=== PATIENT | female | born 1960 | race Caucasian/White ===

== ENCOUNTER → 2016-10-10 | Outpatient (CLI) | payer BC ==
[~2016-10-10] MED LIST: HYDR-5688 PO; RTNACR2515 TOP
--- NOTE | 2016-10-10 13:35 | MAMMOGRAPHY REPORT ---
ULTRASOUND OF RIGHT BREAST: 10/10/2016 CLINICAL HISTORY: 56-year-old woman with a family history of breast cancer = mother and great grandm other, called back from screening mammogram for a possible 17 mm mass in the upper outer quadrant of the right breast. COMPARISON: Prior screen film mammogram performed 04/28/2004. FINDINGS: Real-time high-resolution ultrasound was performed in the upper outer quadrant of the rig ht breast. In the 10:00 axis, 4 cm from the nipple, there is a parallel hypoechoic solid mass with gently lobulated margins. It measures 14.5 x 9.8 x 6.7 mm. This correlates well with the mammograp hic mass. Comparison was made to a prior screen film mammogram from 2003 but the mass is not defini tively seen on that exam, although resolution is poor given the screen film technique digitized and scanned into the system. Nevertheless, given the solid nature definitive characterization with tiss ue sampling is recommended. IMPRESSION: ACR BI-RADS CATEGORY 4: SUSPICIOUS - FOLLOW-UP RECOMMENDED 1. Ultrasound guided core needle biopsy is recommended for a solid 14.5 mm mass in the 10:00 right breast, which correlates with a newly visualized mammographic mass. This could possibly represent a fibroadenoma. These results and recommendations were discussed with the patient at the time of the exam. She tent atively scheduled the biopsy prior to leaving our department. Libby Moralez M.D. ay/:10/10/2016 13:25:27 Printing Screen Assembler: Irina HALEY)(Iván), [facility] letter sent: Abnormal 4/5 BI-RADS Code: ACR BI-RADS Category 4: Suspicious
== END | disposition home or self-care (01) ==
LOC: C.MAMM 13:00
PROVIDERS: ATTEND Family Medicine
DX: N63 Unspecified lump in breast (principal)

== ENCOUNTER → 2016-10-29 | Outpatient (CLI) | payer BC ==
--- NOTE | 2016-10-29 11:26 | Discharge Instructions ---
Discharge Instructions Procedure Procedure Date: Oct 29, 2016. Reason for visit: Right Solid Mass. Discharge Discharge Date: Oct 29, 2016. Discharge Diagnosis: post right breast ultrasound guided core biopsy Instructions Activity Recommendations: Additional Limitations (see below) Return to School/Work: no limitations Recommended Home Diet: No Limitations Provider Instructions: ACTIVITY RECOMMENDATIONS: * No lifting, pushing, pulling or exercising the affected side for three days. RETURN TO SCHOOL/WORK: * You may return to work/school after the procedure, but do not perform any strenuous activities for 24 to 48 hours. MEDICATIONS: * Tylenol (two 325 mg) every four to six hours if needed for mild pain (if not allergic to Tylenol). DIET: * Resume previous diet. SPECIAL CARE INSTRUCTIONS: * Keep biopsy site dry for 24 hours. May shower after 24 hours, but do not soak (bathe) incision. * May remove Tegaderm (plastic patch) tomorrow AFTER showering. * Leave the steri-strips on for one week. Allow the steri-strips to fall off by themselves. If not off after one week, you may remove them. You may place a Bandaid crosswise over the strips, if desired. * Apply ice 10 minutes on and 10 minutes off as needed. * Wear a bra at bedtime to sleep more comfortably for 2-3 days. * Your referring physician should have the results after approximately 5 to 7 business days. * Call for unusual bleeding, fever, drainage, etc or if you have any questions call [phone] during normal business hours or after hours call Dr Moralez, . FOLLOW UP VISIT: Follow-up with Referring Physician as scheduled. Allergies Coded Allergies: Enoxaparin (Verified Allergy, Unknown, HIVES, ITCHING, 07/05/16) Penicillins (Verified Allergy, Unknown, RED HIVES, SWELLING HANDS AND FEET , ITCHING, 07/05/16) Tiki Parra Recommendations: Call your doctor if: * Temperature above 101 degrees * Pain not relieved by pain medicine ordered * There is increased drainage or redness from any incision * You have any unanswered questions or concerns. Your Doctors Instructions noted above were prepared by provider Libby Moralez. Patient Signature Section: Patient Instructions Signature Page Miri Angela Patient (or Guardian) Signature/Date: I have read and understand the instructions given to me by my caregivers. Caregiver/RN/Doctor Signature/Date: The above-named patient and/or guardian has received patient instructions on this date. + Original Patient Signature Page (only) stays with chart. Please make copy for patient.
--- NOTE | 2016-10-29 13:59 | MAMMOGRAPHY REPORT ---
ULTRASOUND GUIDED BIOPSY RIGHT BREAST: 10/29/2016 CLINICAL HISTORY: Indeterminate solid lobulated 14 mm mass in the 10:00 right breast correlating wit h a mammographic mass. Patient presents for ultrasound-guided core needle biopsy. COMPARISON: Comparison is made to exams dated: 10/10/2016 ultrasound and 08/09/2016 mammogram - [facility]. PATIENT CONSENT: The procedure, risks and benefits were discussed with the patient and informed writ ten consent was obtained. Specific risks to this procedure include: bleeding, infection, puncture of adjacent structure, nontarget biopsy, sampling error and medication reaction. PROCEDURE DESCRIPTION: A time out was performed and the right breast was agreed as the site of biops y. The skin was prepped and draped in the usual sterile fashion. The solid lobulated mass in the 10: 00 right breast was chosen as the target for biopsy. Subcutaneous and intraparenchymal 1% buffered l idocaine, with and without epinephrine, was administered as local anesthesia. A skin incision was ma de. Through the incision, 4 samples were taken with a 14 gauge Achieve biopsy device. A ribbon shap ed metallic marker was placed at the biopsy site. Hemostasis was achieved after manual compression. The patient tolerated the procedure well and there was no immediate complication. The samples were sent to pathology department in appropriately labeled container. The patient left the department in satisfactory condition. Postprocedure right CC and ML tomosynthesis images were obtained. There is a new ribbon-shaped katy er within the mammographic mass in question, confirming mammographicsonographic correlation. No si gnificant postbiopsy hematoma is identified. IMPRESSION: ULTRASOUND GUIDED BIOPSY Status post ultrasound guided core biopsy of an indeterminate solid mass in the 10:00 right breast, with biopsy marker placed at the site. The patient will receive notification of the biopsy results from her referring physician. Libby Moralez M.D. ay/:10/29/2016 11:51:24 Trading Floor Operator: Annemarie Cummins, [facility]
--- NOTE | 2016-10-29 14:00 | MAMMOGRAPHY REPORT ---
UNILATERAL RIGHT DIGITAL DIAGNOSTIC MAMMOGRAM TOMOSYNTHESIS: 10/29/2016 CLINICAL HISTORY: 56-year-old woman presents for ultrasound-guided core biopsy of an indeterminate s olid mass in the 10:00 right breast. Please refer to the report from right breast ultrasound guided core biopsy performed at the same edvin e for full detail. IMPRESSION: POST PROCEDURE IMAGING FOR MARKER PLACEMENT Please refer to the report from right breast ultrasound guided core biopsy performed at the same edvin e for full detail. Approximately 10% of breast cancers are not detected with mammography. A negative mammographic repor t should not delay biopsy if a clinically suggestive mass is present. Libby Moralez M.D. ay/:10/29/2016 11:48:54 Registration Scheduling Specialist: Annemarie Cummins, [facility] BI-RADS Code: Post Procedure Imaging For Marker Placement
== END | disposition home or self-care (01) ==
LOC: C.MAMM 10:53
PROVIDERS: ATTEND Family Medicine
DX: D24.1 Benign neoplasm of right breast (principal)

== ENCOUNTER 2016-12-01 13:36 | Emergency (ER) | payer BC ==
[~2016-12-01] VITALS: Ht 167.6 cm; Wt 112.0 kg
[2016-12-01 13:43] VITALS: TEMP 36.6; Ht 167.6 cm; Wt 112.0 kg
--- NOTE | 2016-12-01 14:13 | DIAGNOSTIC IMAGING REPORT ---
RIGHT ELBOW 3 VIEWS HISTORY: fall; R elbow pain Right COMPARISON: None. FINDINGS: There is a radial head fracture demonstrating 1 mm of depression. Right elbow effusion with posterior soft tissue swelling. No dislocation. No radiopaque foreign bodies. IMPRESSION: Minimally depressed radial head fracture with an associated elbow effusion. Electronically signed by: Lang Freeman M.D. 12/01/2016 2:11 PM Dictated Date/Time: 12/01/2016 2:10 PM
[2016-12-01] MEDS ORDERED: RTNACR2515 TOP (14:27)
[2016-12-01] MEDS ORDERED: HYDR-5688 PO (14:43)
[2016-12-01 15:02] VITALS: BP 152/90; PULSE 86; O2SAT 94
--- NOTE | 2016-12-02 07:54 | EMERGENCY ROOM VISIT NOTE ---
ED Visit Note First contact with patient: 13:54 Chief Complaint: Right elbow pain. History of Present Illness: Ms. Miller is a 56-year-old white female who ambulates into the ED complaining of right elbow pain. Historically patient reports she had a previous right elbow fracture last year. Patient reports yesterday she was walking her dog, tripped and fell injuring her elbow. She reports before the fall she had no lightheadedness and dizziness. At the time of the fall she did not strike her head but felt she struck her face but has not had any facial pain and has not observed any injuries to the face. She has had no associated head injury symptoms and denies neck pain. Currently she is complaining of right medial elbow pain and left anterior knee pain. She places her elbow pain over the proximal head of the ulna. She describes her pain as a deep achy sensation. She rates her discomfort 2/10. Her pain worsens with flexion of the elbow and pronation and supination of the forearm. She has not identified any alleviating factors related to the pain. She has not taken a medication for pain prior to arrival at the hospital. She denies any associated shoulder pain, wrist pain, hand pain, right upper extremity weakness/numbness/tingling. She places her anterior left knee pain just superior to the patella. She describes this as an achy sensation. She does not rates this discomfort. Her pain is nonradiating. Her pain worsens minimally with ambulation and the last few degrees of extension. She has not identified any alleviating factors related to the pain. She denies any associated hip pain, ankle pain, lower leg pain, lower extremity weakness/numbness/tingling. Overall she also denies any headaches, dizziness, chest pain, shortness of breath, abdominal pain, nausea/vomiting, back pain. Review of Systems: As noted above in history of present illness. 8 body systems were reviewed and found to be negative as noted above. Past Medical History: Unspecified left eye retinal issues. Current Medications: Retin-A. Allergies to Medications: Penicillin, enoxaparin. Social History: Patient is currently employed; she feels safe in her home environment; she denies tobacco use. Physical Examination: Vital Signs: Date Time Temp Pulse Resp B/P Pulse Ox O2 Delivery O2 Flow Rate FiO2 12/01/16 15:02 86 152/90 94 12/01/16 13:43 36.6 87 18 163/102 96 Room Air GENERAL: 56-year-old female in mild distress due to pain, nontoxic-appearing, afebrile and hemodynamically stable. NEUROLOGICAL: Awake, alert and oriented to person, place and time. Answering questions appropriately and following commands. Normal gait. Good hand eye coordination. No focal motor sensory deficits. Cranial nerves II through XII grossly intact. Good short-term and long-term recall. SKIN: Warm, dry and pink. No soft tissue trauma noted. HEENT: Atraumatic and normocephalic. No facial bony tenderness, swelling or soft tissue injuries. PERRLA. EOMI without nystagmus. No malocclusion. No intraoral trauma. Airway patent. Speech normal and clear. Trachea midline. No jugular venous distention. BACK: No tenderness over the bony cervical spine. Full range of motion of the cervical spine. RIGHT UPPER EXTREMITY: No gross bony deformity. No tenderness throughout the shoulder, proximal humerus, distal forearm, wrist or hand. Mild diffuse tenderness over the medial aspect of the elbow without bony deformity or crepitus. I do not appreciate any swelling or ecchymosis. Decreased range of motion primarily with flexion of the elbow and pronation and supination of the forearm. Throughout the arm the skin was warm and pink and capillary refill is brisk. Distal pulses were intact as well as light sensation. LEFT LOWER EXTREMITY: No gross bony deformities. No shortening or malrotation. No tenderness over the hip, thigh, lower leg, ankle. Mild tenderness just superior to the patella without bony deformity, bony crepitus or ecchymosis. Full range of motion in flexion and extension of the knee. No ligamentous laxity. No joint effusion. Negative patellar apprehension test. Distal pulses and sensation is intact to light touch. ED Course: Patient assessed as noted above. Patient was offered pain medication and refused. Right Elbow X-Rays: Were read by myself and the radiologist showing a mildly depressed radial head fracture with a joint effusion. Patient was offered left knee x-rays and refused. Patient was placed in a posterior Ortho-Glass elbow splint at 90 and was then immobilized in a sling. Patient was educated about tonight's findings and instructed on her treatment plan; she verbalizes understanding and agreement with this plan. Clinical Impression: Right radial head fracture. Left anterior knee pain. Status post fall. Disposition: Patient discharged home in stable condition; prior to departure she was reassessed and subjectively reported she was feeling slightly worse and rated her discomfort 4/10. Once again she was offered pain medications and refused. Plan: Comfort measures were discussed with the patient including rest, ice, splint and sling use and he was placed on a sliding pain medication scale including [place]; she was educated on the proper precautions of narcotic use. Patient was encouraged to follow-up with her pc support specialist for definitive care and treatment. Patient was encouraged return ED for worsening/uncontrolled pain, uncontrolled swelling, right upper extremity weakness/numbness/tingling or any new/ concerning symptoms.
== END 2016-12-01 15:03 | disposition home or self-care (01) ==
LOC: C.EDB 13:38 → C.EDD 15:03
DX: S52.121A Displaced fracture of head of right radius, initial encounter for closed fracture (principal); M25.562 Pain in left knee; Y93.K1 Activity, walking an animal; W01.0XXA Fall on same level from slipping, tripping and stumbling without subsequent striking against object, initial encounter; Z79.899 Other long term (current) drug therapy